=== PATIENT | male | born 1975 | race Caucasian/White ===

== ENCOUNTER 2020-07-12 06:41 | Inpatient (IN) | payer MEDICAID ==
[~2020-07-12] VITALS: Ht 172.7 cm; Wt 96.0 kg
[2020-07-12] MEDS ORDERED: ONDANSETRON ODT 4 MG PO PRN (10:00)
[2020-07-12] MEDS ORDERED: POLYETHYLENE GLYCOL 17 GM PACKET PO PRN (10:00)
[2020-07-12] MEDS ORDERED: DOCUSATE 100 MG CAPSULE PO PRN (10:00)
[2020-07-12] MEDS ORDERED: ACETAMINOPHEN 325 MG TABLET PO PRN (10:00)
[2020-07-12] MEDS ORDERED: BISACODYL 10 MG SUPP PR PRN (10:00)
[2020-07-12] MEDS ORDERED: LITH300T3 PO (10:18)
[2020-07-12] MEDS ORDERED: PROP20TA PO (10:18)
[2020-07-12] MEDS ORDERED: BENZ1TAB61 PO (10:18)
[2020-07-12] MEDS ORDERED: ZIPR40CA2 PO (10:18)
[2020-07-12] MEDS ORDERED: QUET300T5 PO (10:18)
[2020-07-12] MEDS ORDERED: RIVA20TA PO (10:18)
[2020-07-12] MEDS ORDERED: ATOR10TA9 PO (10:18)
[2020-07-12 11:21] VITALS: BP 129/85
[2020-07-12] MEDS ORDERED: PLEASE ENTER HEIGHT AND WEIGHT MC SCH (11:30)
[2020-07-12] MEDS ORDERED: TAMSULOSIN 0.4 MG CAP.ER.24H PO SCH (12:00)
[2020-07-12] MEDS: ACAMPROSATE 333 MG TABLET.DR PO SCH ×2 (16:00→20:49)
[2020-07-12 18:03] VITALS: BP 140/85
[2020-07-12] MEDS: LORazepam 1MG TABLET PO PRN (18:06)
[2020-07-12] MEDS: PROPRANOLOL 20 MG TABLET PO SCH (18:06)
[2020-07-12 20:10] VITALS: BP 102/63
[2020-07-12] MEDS: ZIPRASIDONE 40MG CAPSULE PO SCH (20:49)
[2020-07-12] MEDS: BENZTROPINE 1 MG TABLET PO SCH (20:49)
[2020-07-12] MEDS: LITHIUM CARBONATE 300 MG CAPSULE PO SCH (20:49)
[2020-07-12] MEDS: QUETIAPINE 100MG TABLET PO SCH (20:49)
[2020-07-12] MEDS: ATORVASTATIN 10 MG TABLET PO SCH (20:49)
[2020-07-12] MEDS: TAMSULOSIN 0.4 MG CAP.ER.24H PO SCH (20:50)
[2020-07-13 05:39] LABS: CHOL/HDL RATIO 3.9; CHOLESTEROL, TOTAL 161 mg/dL (140-239); CREATININE 1.01 mg/dL (0.7-1.3); FREE T4 (FREE THYROXINE) 1.12 ng/dL (0.76-1.46); HDL CHOL % 25 % (26-37); HDL CHOLESTEROL (DIRECT) 41 mg/dL (40-60); LDL CHOLESTEROL,CALCULATED 64 mg/dL (54-169); LDL/HDL RATIO 1.6 (0.5-3.0); TRIGLYCERIDES 279 mg/dL (50-200); VLDL CHOLESTEROL 56 mg/dL (0-25)
[2020-07-13] MEDS: PROPRANOLOL 20 MG TABLET PO SCH ×2 (06:05→16:18)
[2020-07-13 07:42] VITALS: BP 98/68
[2020-07-13] MEDS: LORazepam 1MG TABLET PO PRN (08:37)
[2020-07-13] MEDS: LITHIUM CARBONATE 300 MG CAPSULE PO SCH ×2 (08:37→21:02)
[2020-07-13] MEDS: FOLIC ACID 1 MG TABLET PO SCH (08:37)
[2020-07-13] MEDS: ACAMPROSATE 333 MG TABLET.DR PO SCH ×3 (08:37→21:01)
[2020-07-13] MEDS: ZIPRASIDONE 40MG CAPSULE PO SCH ×2 (08:37→21:02)
[2020-07-13] MEDS: BENZTROPINE 1 MG TABLET PO SCH ×2 (08:38→21:01)
[2020-07-13] MEDS: THIAMINE 100MG TABLET PO SCH (08:38)
[2020-07-13] MEDS: RIVAROXABAN 20 MG TABLET PO SCH (16:18)
[2020-07-13 19:42] VITALS: BP 122/83
[2020-07-13] MEDS: TAMSULOSIN 0.4 MG CAP.ER.24H PO SCH (21:01)
[2020-07-13] MEDS: ATORVASTATIN 10 MG TABLET PO SCH (21:02)
[2020-07-13] MEDS: QUETIAPINE 100MG TABLET PO SCH (21:03)
[2020-07-14 07:45] VITALS: BP 113/75
[2020-07-14] MEDS: FOLIC ACID 1 MG TABLET PO SCH (08:26)
[2020-07-14] MEDS: ACAMPROSATE 333 MG TABLET.DR PO SCH ×3 (08:26→19:48)
[2020-07-14] MEDS: ZIPRASIDONE 40MG CAPSULE PO SCH ×2 (08:26→19:47)
[2020-07-14] MEDS: THIAMINE 100MG TABLET PO SCH (08:26)
[2020-07-14] MEDS: PROPRANOLOL 20 MG TABLET PO SCH ×2 (08:26→17:52)
[2020-07-14] MEDS: LITHIUM CARBONATE 300 MG CAPSULE PO SCH ×2 (08:26→19:48)
[2020-07-14] MEDS: BENZTROPINE 1 MG TABLET PO SCH ×2 (08:26→19:47)
[2020-07-14 09:09] LABS: MICROSCOPIC NOT IND
[2020-07-14] MEDS: RIVAROXABAN 20 MG TABLET PO SCH (16:04)
[2020-07-14] MEDS: ATORVASTATIN 10 MG TABLET PO SCH (19:47)
[2020-07-14] MEDS: QUETIAPINE 100MG TABLET PO SCH (19:48)
[2020-07-14] MEDS: TAMSULOSIN 0.4 MG CAP.ER.24H PO SCH (19:48)
[2020-07-14 19:56] VITALS: BP 113/72
[2020-07-15 06:19] VITALS: BP 115/75
[2020-07-15] MEDS: PROPRANOLOL 20 MG TABLET PO SCH ×2 (06:22→18:00)
[2020-07-15 07:49] VITALS: BP 105/72
[2020-07-15] MEDS: ACAMPROSATE 333 MG TABLET.DR PO SCH ×3 (08:39→20:43)
[2020-07-15] MEDS: ZIPRASIDONE 40MG CAPSULE PO SCH ×2 (08:39→20:44)
[2020-07-15] MEDS: LITHIUM CARBONATE 300 MG CAPSULE PO SCH ×2 (08:39→20:44)
[2020-07-15] MEDS: THIAMINE 100MG TABLET PO SCH (08:40)
[2020-07-15] MEDS: FOLIC ACID 1 MG TABLET PO SCH (08:40)
[2020-07-15] MEDS: BENZTROPINE 1 MG TABLET PO SCH ×2 (08:40→20:43)
[2020-07-15] MEDS: RIVAROXABAN 20 MG TABLET PO SCH (15:54)
[2020-07-15 17:53] VITALS: BP 142/79
[2020-07-15 19:37] VITALS: BP 140/88
[2020-07-15] MEDS: TAMSULOSIN 0.4 MG CAP.ER.24H PO SCH (20:43)
[2020-07-15] MEDS: QUETIAPINE 100MG TABLET PO SCH (20:44)
[2020-07-15] MEDS: ATORVASTATIN 10 MG TABLET PO SCH (20:44)
[2020-07-16 07:44] VITALS: BP 117/79
[2020-07-16] MEDS: LITHIUM CARBONATE 300 MG CAPSULE PO SCH ×2 (09:43→20:34)
[2020-07-16] MEDS: ACAMPROSATE 333 MG TABLET.DR PO SCH ×3 (09:43→20:34)
[2020-07-16] MEDS: THIAMINE 100MG TABLET PO SCH (09:43)
[2020-07-16] MEDS: ZIPRASIDONE 40MG CAPSULE PO SCH ×2 (09:43→20:34)
[2020-07-16] MEDS: FOLIC ACID 1 MG TABLET PO SCH (09:44)
[2020-07-16] MEDS: BENZTROPINE 1 MG TABLET PO SCH ×2 (09:44→20:34)
[2020-07-16] MEDS: PROPRANOLOL 20 MG TABLET PO SCH ×2 (09:44→16:28)
[2020-07-16] MEDS ORDERED: QUET100T PO (13:54)
[2020-07-16] MEDS ORDERED: RIVA20TA PO (13:54)
[2020-07-16] MEDS ORDERED: ACAM333T7 PO (13:54)
[2020-07-16] MEDS ORDERED: PROP20TA PO (13:54)
[2020-07-16] MEDS ORDERED: ZIPR40CA2 PO (13:54)
[2020-07-16] MEDS ORDERED: TAMS-11 PO (13:54)
[2020-07-16] MEDS ORDERED: LITH300C PO (13:54)
[2020-07-16] MEDS ORDERED: ATOR10TA9 PO (13:54)
[2020-07-16] MEDS ORDERED: BENZ1TAB61 PO (13:54)
[2020-07-16] MEDS: RIVAROXABAN 20 MG TABLET PO SCH (16:28)
[2020-07-16 19:38] VITALS: BP 105/70
[2020-07-16] MEDS: TAMSULOSIN 0.4 MG CAP.ER.24H PO SCH (20:34)
[2020-07-16] MEDS: ATORVASTATIN 10 MG TABLET PO SCH (20:34)
[2020-07-16] MEDS: QUETIAPINE 100MG TABLET PO SCH (20:35)
[2020-07-17] MEDS: PROPRANOLOL 20 MG TABLET PO SCH (05:44)
[2020-07-17 07:31] VITALS: BP 111/74
[2020-07-17] MEDS: FOLIC ACID 1 MG TABLET PO SCH (08:34)
[2020-07-17] MEDS: ZIPRASIDONE 40MG CAPSULE PO SCH (08:34)
[2020-07-17] MEDS: THIAMINE 100MG TABLET PO SCH (08:34)
[2020-07-17] MEDS: BENZTROPINE 1 MG TABLET PO SCH (08:34)
[2020-07-17] MEDS: LITHIUM CARBONATE 300 MG CAPSULE PO SCH (08:34)
[2020-07-17] MEDS: ACAMPROSATE 333 MG TABLET.DR PO SCH (08:34)
== END 2020-07-17 09:55 | disposition home or self-care (01) | DRG 750 ==
LOC: 3E 11:02
PROVIDERS: ADMIT Psychiatry & Neurology Psychosomatic Medicine; ATTEND Psychiatry & Neurology Psychosomatic Medicine
DX: F25.0 Schizoaffective disorder, bipolar type (principal); R45.851 Suicidal ideations; F17.210 Nicotine dependence, cigarettes, uncomplicated; F12.10 Cannabis abuse, uncomplicated; Z86.711 Personal history of pulmonary embolism; Z91.013 Allergy to seafood; Z88.8 Allergy status to other drugs, medicaments and biological substances
CPT/HCPCS: 36415; 71045; 80061; 80178; 81003; 82565; 84439; 84443; 84520; 93005

== ENCOUNTER 2020-07-24 23:10 | Emergency (ER) | payer MEDICAID ==
[~2020-07-24] VITALS: Ht 172.7 cm; Wt 107.0 kg
[~2020-07-24 23:10] MED LIST: ACAM333T7 PO; ATOR10TA9 PO; BENZ1TAB61 PO; LITH300C PO; LITH300T3 PO; PROP20TA PO; QUET100T PO; QUET300T5 PO; RIVA20TA PO; TAMS-11 PO; ZIPR40CA2 PO
--- NOTE | 2020-07-24 23:33 | NUR ---
EKG DONE IN TRIAGE.
--- NOTE | 2020-07-24 23:44 | NUR ---
PT. C/O CP STARTING THIS AM, SHARP IN NATURE. INTERMITTENT BUT WORSE WITH EXERTION. EKG DONE IN TRIAGE. PT. PLACED ON SPO2, B/P, AND CARDIAC MONITORS. DR. HUSTON WAS IN TO EVAL PT. AND DISUCSS POC. X-RAY COMPLETED.
[2020-07-24 23:55] LABS: BASOPHILS % (AUTO) 1 % (0-1); EOSINOPHILS % (AUTO) 5 % (1-7); LYMPHOCYTES % (AUTO) 33 % (22-44); MEAN CORPUSCULAR HGB CONC 34.7 g/dL (33.2-36.2); MEAN PLATELET VOLUME 7.8 fL (7.4-10.4); MONOCYTES % (AUTO) 10 % (2-9); NEUTROPHILS % (AUTO) 51 % (42-75); PLATELET COUNT 289 x10^3/uL (130-400); RED BLOOD COUNT 4.18 x10^6/uL (4.38-5.82); RED CELL DISTRIBUTION WIDTH 13.4 % (9.4-14.8)
[2020-07-25 00:02] LABS: MD NO
--- NOTE | 2020-07-25 00:08 | NUR ---
LATE ENTRY: REPORT TO JAYDA DOSHI TO ASSUME CARE OF PT.
[2020-07-25 00:11] LABS: ALANINE AMINOTRANSFERASE 27 U/L (12-78); ALBUMIN 3.5 g/dL (3.4-5.0); ANION GAP 5 mmol/L (5-15); CALCIUM 8.5 mg/dL (8.5-10.1); CHLORIDE 108 mmol/L (98-107)
[2020-07-25 00:16] LABS: ALKALINE PHOSPHATASE 83 U/L (45-117); BILIRUBIN,TOTAL 0.4 mg/dL (0.2-1.0); CREATININE 1.24 mg/dL (0.7-1.3); TOTAL PROTEIN 6.8 g/dL (6.4-8.2); TROPONIN I < 0.015 ng/mL (0.000-0.045)
[2020-07-25 01:21] VITALS: BP 142/84
== END 2020-07-25 01:23 | disposition home or self-care (01) ==
LOC: ED 07-25 00:37
DX: R06.00 Dyspnea, unspecified (principal); B34.9 Viral infection, unspecified; R07.89 Other chest pain; R05 Cough; R06.02 Shortness of breath; E78.5 Hyperlipidemia, unspecified
CPT/HCPCS: 36415; 71045; 80053; 80178; 83880; 84484; 85025; 93005; 99285